=== PATIENT | female | born 1960 | race Caucasian/White ===

== ENCOUNTER 2017-02-07 18:31 | Emergency (ER) | payer OTHER ==
[~2017-02-07] VITALS: Ht 162.6 cm; Wt 70.3 kg
--- NOTE | 2017-02-07 18:37 | NUR ---
PT TO ER BED 08. COUGH AND CONGESTION X 2 DAYS. WHEEZING, HX OF ASTHMA. STATES INHALER NOT WORKING. DENIES FEVER. ON MONITOR. STABLE VITALS. AWAITING MD ALEXANDRE.
[2017-02-07] MEDS ORDERED: Magnesium 1GM/D5W 100ML PREMIX 200 ML IV ONE ×2 (18:41→18:48)
--- NOTE | 2017-02-07 18:42 | NUR ---
DR GAMA AT BEDSIDE FOR EVAL.
[2017-02-07] MEDS ORDERED: DEXAMETHASONE SOD PHOSPHATE 10 MG/ML VIAL ONE (18:47)
[2017-02-07] MEDS ORDERED: IV NS 0.9% 250 ML IV ONE (18:48)
[2017-02-07] MEDS ORDERED: IV SET PRIMARY PUMP SET 1 EA INFUS.SET MC ONE (18:48)
[2017-02-07] MEDS ORDERED: IV SET PRIMARY 1 EA INFUS.SET MC ONE (18:48)
[2017-02-07] MEDS ORDERED: ALBUTEROL FS 2.5 MG/3 ML VIAL.NEB ONE (18:49)
[2017-02-07] MEDS ORDERED: IPRATROPIUM NEB FS 0.5 MG/2.5 ML AMPUL.NEB ONE (18:49)
--- NOTE | 2017-02-07 18:58 | NUR ---
RT AT BEDSIDE FOR BREATHING TREATMENT.
--- NOTE | 2017-02-07 18:58 | NUR ---
Brigida costa in [facility] - 02/07/17 at 1919 by CARLOS RT AT BEDSIDE FOR BLOOD DRAW.
[2017-02-07] MEDS ORDERED: IV NS 0.9% 500 ML IV ONE (19:00)
[2017-02-07] MEDS ORDERED: DEXAMETHASONE SOD PHOSPHATE 10 MG/ML VIAL IV ONE (19:00)
[2017-02-07] MEDS ORDERED: IPRATROPIUM NEB FS 0.5 MG/2.5 ML AMPUL.NEB NEB ONE (19:00)
[2017-02-07] MEDS ORDERED: ALBUTEROL FS 2.5 MG/3 ML VIAL.NEB CONTNEB ONE (19:00)
--- NOTE | 2017-02-07 20:12 | NUR ---
CALLED RT FOR BREATHING TREATMENT
[2017-02-07] MEDS ORDERED: ALBUTEROL FS 2.5 MG/0.5 ML VIAL.NEB ONE (20:14)
[2017-02-07] MEDS ORDERED: ALBUTEROL FS 2.5 MG/0.5 ML VIAL.NEB NEB ONE (20:30)
[2017-02-07 21:23] VITALS: BP 117/72
--- NOTE | 2017-02-07 21:23 | NUR ---
IV removed. Catheter intact and site benign. Pressure and 4x4 applied to site. No bleeding noted.Patient discharged to home in stable condition. Written and verbal after care instructions given. Patient verbalizes understanding of instruction.
== END 2017-02-07 21:24 | disposition home or self-care (01) ==
LOC: ER 18:37
DX: J45.909 Unspecified asthma, uncomplicated (principal); Z88.0 Allergy status to penicillin
CPT/HCPCS: 71010-TC; A4606; J1100; J3475; J7050; Z7610